=== PATIENT | female | born 1995 | race Caucasian/White ===

== ENCOUNTER 2021-09-13 15:24 | Outpatient (CLI) | payer BC, SELFPAY ==
[2021-09-13 16:34] LABS: Absolute Lymphocyte Count 3.05 X10^3/uL (0.83-4.51); Absolute Neutrophil Count 3.3 X10^3/uL (2.0-7.7); Basophil# 0.03 X10^3/uL; Basophil% 0.4 % (0-1); Eosinophil# 0.06 X10^3/uL; Eosinophils% 0.9 % (0-5); Hematocrit 38.8 % (37-47); Lymphocyte # 3.05 X10^3/ul (0.83-4.51); Lymphocyte % 44.1 % (19-41); Mean Corp Hgb Conc 33.5 g/dL (32-36); Mean Corpuscular Volume 89.4 fL (81-99); Mean Platelet Vol. 9.5 fl (6.2-12.0); Monocyte# 0.45 X10^3/uL; Monocyte% 6.5 % (0-10); NRBC Flagged by Analyzer 0.3 % (0-5); Neutrophil # 3.27 X10^3/uL (2.7-7.7); Neutrophil % 47.4 % (47-70); Platelet Count 320 K/mm3 (150-450); RBC Distribution Width CV 12.4 % (11.6-14.6); RBC Distribution Width SD 40.2 fl (35.1-43.9); Red Blood Count 4.34 M/mm3 (4.2-5.4); White Blood Count 6.9 K/mm3 (4.4-11.0)
[2021-09-13 16:58] LABS: AST(SGOT) 16 U/L (15-37); Alanine Aminotransfer ALT/SGPT 24 U/L (13-56); Alkaline Phosphatase 52 U/L (45-117); Anion Gap 5 (5-15); BUN 10 mg/dL (7-18); BUN/Creat Ratio 14.7 RATIO (10-20); Chloride 106 mmol/L (98-107); Creatinine, Serum 0.68 mg/dL (0.55-1.02); EST Glomerular Filtration Rate 111 mL/min (>60); Est Glom Filt Rate - Afr Amer 134 mL/min (>60); Globulin 3.9 g/dL (2.2-4.2); Glucose 78 mg/dL (74-106); Potassium 3.6 mmol/L (3.5-5.1); Protein, Total 7.9 g/dL (6.4-8.2); Sodium Level 139 mmol/L (136-145); Thyroid Stim Hormone (TSH) 1.28 uIU/mL (0.358-3.74)
[2021-09-15 20:04] LABS: ANTINUCLEAR ANTIBODIES DIRECT Negative (Negative)
== END 2021-09-13 23:59 | disposition home or self-care (01) ==
LOC: BIMLAB 15:25
PROVIDERS: PCP Internal Medicine; Referring Provider Internal Medicine; Visit Provider Internal Medicine
DX: R76.8 Other specified abnormal immunological findings in serum (principal); J45.909 Unspecified asthma, uncomplicated; Z13.29 Encounter for screening for other suspected endocrine disorder
CPT/HCPCS: 36415; 80053; 84439; 84443; 85025; 86038; 86225; 86235

== ENCOUNTER → 2021-09-27 | Outpatient (CLI) | payer BC, SELFPAY ==
--- NOTE | 2021-09-27 16:24 | ST.MBS ---
Modified Barium Swallow - Patient Information Study Date: 09/27/21 Study Time: 13:15 Direct Billable Minutes: 90 Total Minutes procedure & reportin Diagnosis: Dysphagia, unspecified (R13.10) Referring Physician: Santa Joya Reason for Referral: Objectively assess swallow function, risk for aspiration, and determine recommendations for least restrictive diet textures and compensatory strategies to improve safety of swallow. Medical History: The patient is a 26-year-old female with PMH including GERD, IBS, lupus, asthma, and dysphagia. SEE EMR for full PMH. She has been referred for MBS study by her PCP due to patient reports of increased difficulty swallowing for years. Per patient, her swallowing difficulty has been worse in the past 4-5 months. She denies hx of GERD. She reports she feels her swallow is slower, taking more effort, and requiring multiple swallows to clear. She has vomited 3X due to sensation that food was not clearing. Current Diet Ordered: Regular textures / Thin liquids Dentition: WNL Mental Status: WNL Respiratory Status: Oxygenating on Room Air - Penetration-Aspiration Scale Penetration-Aspiration Scale: OBJECTIVE ASSESSMENT OF SWALLOW FUNCTION (QUANTITATIVE ? PER TRIAL): PENETRATION / ASPIRATION SCALE (ENGLISH): 1 = does not enter airway 2 = enters airway/above vocal folds/ejected 3 = enters airway/above vocal folds/not ejected 4 = enters airway/contacts vocal folds/ejected 5 = enters airway/contacts vocal folds/not ejected 6 = enters airway/below vocal folds/ejected 7 = enters airway/below vocal folds/not ejected despite effort 8 = enters airway/below vocal folds/no effort VIDEOFLOROSCOPIC SCALE SCORE (ENGLISH): Grade I = aspiration of material that has penetrated into the laryngeal vestibule, intact cough reflex Grade II = aspiration < 10 % of the bolus, intact cough reflex Grade III = aspiration of < 10 % of the bolus, reduced cough reflex or aspiration of > 10 % of the bolus, intact cough reflex Grade IV = aspiration of > 10 % of the bolus, reduced cough reflex - Penetration-Aspiration Scale Score Thin Liquid via teaspoon Result: 1= does not enter airway Thin Liquid via teaspoon Trial 2 Result: 1= does not enter airway via large single sip from cup Result: 1= does not enter airway Thin Liquid via sequential sips from cup Result: 1= does not enter airway [place] Thick Liquid via small single sip from cup Result: 1= does not enter airway Honey Thick Liquid via small single sip from cup with esophageal screen Result: 1= does not enter airway Pudding via teaspoon with esophageal screen Result: 1= does not enter airway Cookie with esophageal screen Result: 1= does not enter airway Thin Liquid via single sip from straw Result: 1= does not enter airway Thin Liquid via sequential sips from straw Result: 1= does not enter airway - Oral Phase Labial Seal: No Labial Escape Tongue Control During Bolus Hold: Posterior escape of less than half of bolus Bolus Preparation/Mastication: Timely and efficient chewing and mashing Bolus Transport/Lingual Motion: Delayed initiation of tongue motion Oral Residue: Residue collection on oral structures - Piecemeal deglutition of large sips of thin liquid and cookie - Pharyngeal Phase Initiation of Pharyngeal Swallow: Bolus head in pyriforms Soft Palate Elevation: No bolus between soft palate and pharyngeal wall Laryngeal Elevation: Partial superior movement thyroid cart/partial apprx aryt-epig petiole Anterior Hyoid Excursion: Complete anterior movement Epiglottic Movement: Complete inversion Laryngeal Vestibule Closure at Height of Swallow: Complete; no air/contrast in laryngeal vestibule Pharyngeal Stripping Wave: Present - complete Pharyngoesophageal Segment Opening: Parital distension and partial duration; parital obstruction of flow Tongue Base Retraction: Trace column of contrast between tongue base & post. pharyngeal wall Pharyngeal Residue: Trace residue within or on pharyngeal structures - Esophageal Phase Esophageal Clearance: Esophageal retention w/ retrograde flow below pharyngoesophageal seg. - Diagnosis/Impression Diagnosis: Mild oropharyngeal phase dysphagia (R13.12) Impression: The oral phase is marked by piecemeal deglutition of cookie and large sips, as well as mild deficits in bolus control. The patient demonstrates posterior loss of large sip of thin liquids via cup to the pyriforms prior to swallow onset. The pharyngeal phase is marked by mild delay initiating the swallow. She demonstrated decreased laryngeal elevation; however, she presents with excellent airway closure during the swallow. No laryngeal penetration or aspiration observed during the study. The esophageal phase is marked by retention of pudding contrast in mid esophagus, as well as retention and retrograde flow of sequential sips of thin liquids just below the UES. GI consult recommended. The patient reports the need to cough to clear food/drink that will not clear at home. She also reports her swallow feels slower and more effortful. Will recommend OP speech therapy to provide review of the below recommendations and implement oropharyngeal strengthening exercise program. - Recommendations Diet: Regular Textures, Thin Liquids Compensatory Strategies: Small Bites, Small Sips, Slow Rate - Sips and bites one at a time, Sitting upright, Remain sitting upright for 30 minutes after PO intake Need for Skilled Speech Therapy Services: Yes Comment: Would recommend the patient for OP speech therapy to address mild oropharyngeal dysphagia. Will recommend 2-3 dysphagia treatment sessions for implementation of oropharyngeal exercises to promote improved laryngeal elevation and UES opening (Justine Funk). Would additionally provide the patient reflux education and review recommended compensatory strategies to decrease risk for aspiration and reflux. Education Completed: 1. Described result of evaluation., 2. Pt understands evaluation & agrees with goals and treatment plan. - Status Active ST Patient: Active - Contact Information [facility] Speech Therapy:: Lulu Gallo M.A. [facility] Speech-Language Pathologist [facility] [address] [place] [address] [email or web address] [phone] 09/27/21 16:42
== END | disposition home or self-care (01) ==
PROVIDERS: PCP Internal Medicine; Visit Provider Internal Medicine
DX: R13.10 Dysphagia, unspecified (principal)
CPT/HCPCS: 74230; 92611

== ENCOUNTER → 2021-11-03 | Outpatient (CLI) | payer BC, SELFPAY ==
[2021-11-03 16:31] LABS: Erythrocyte Sedimentation Rate 6 mm/hr (0-30)
[2021-11-03 16:55] LABS: CRP < 2.90 mg/L (0.0-3.0)
[2021-11-06 18:06] LABS: Endomysial Antibody IgA Negative (Negative)
[2021-11-07 16:23] LABS: Immunoglobulin A 95 mg/dL (87-352); t-Transglutaminase IgA <2 U/mL (0-3)
[2021-11-14 11:26] LABS: Anti-Centromere B Ab <0.2 AI (0.0-0.9); Anti-Chromatin <0.2 AI (0.0-0.9); Anti-Jo <0.2 AI (0.0-0.9); Anti-Scleroderma-70 AB <0.2 AI (0.0-0.9); Beef <0.10 kU/L (Class 0); Clam <0.10 kU/L (Class 0); Codfish <0.10 kU/L (Class 0); Corn <0.10 kU/L (Class 0); Egg, White <0.10 kU/L (Class 0); Egg, Whole <0.10 kU/L (Class 0); Milk (Cow) <0.10 kU/L (Class 0); Peanut <0.10 kU/L (Class 0); Pork <0.10 kU/L (Class 0); RNP Ab 0.2 AI (0.0-0.9); SCALLOP <0.10 kU/L (Class 0); SESAME SEED <0.10 kU/L (Class 0); SJOGREN'S Anti-SS-A test < 0.2 AI (0.0-0.9); SJOGREN'S Anti-SS-B test < 0.2 AI (0.0-0.9); Shrimp <0.10 kU/L (Class 0); Smith Ab <0.2 AI (0.0-0.9); Soybean <0.10 kU/L (Class 0); Walnut, (Food) <0.10 kU/L (Class 0); Wheat <0.10 kU/L (Class 0)
[2021-11-14 18:01] LABS: Anti-dsDNA Ab 1 IU/mL (0-9); Chocolate <0.10 kU/L (Class 0)
== END | disposition home or self-care (01) ==
LOC: LAB 15:19
PROVIDERS: PCP Internal Medicine; Visit Provider Nurse Practitioner Adult Health
DX: R11.0 Nausea (principal); R10.9 Unspecified abdominal pain; R13.10 Dysphagia, unspecified; K59.00 Constipation, unspecified
CPT/HCPCS: 36415; 82784; 83516; 85652; 86003; 86005; 86140; 86225; 86235; 86255

== ENCOUNTER 2022-02-14 13:11 | Day surgery (SDC) | payer BC, SELFPAY ==
[2022-02-14] MEDS: Lactated Ringers 1,000 ML 15 ML IV (13:30)
[2022-02-14 13:39] LABS: Internal QC Validated? YES +Cl - CLEAR BKGD; Pregnancy, Urine Negative Negative
--- NOTE | 2022-02-14 13:40 | PCM.HP.BLA ---
History and Physical Date of Admission: 02/14/22 CANDICE BALBUENA, is a 26 F who presents to the office today for multiple gastrointestinal concerns.? She has chronic nausea, belching, gas, abdominal pain, bloating, regurgitation, constipation. Belching after every bite or sip of food or fluid. Had it age 16, resolved spontaneously, back now. Lots of gas. 15 lb wt gain in the past year. Abd bloating. Severe epigastric pain causes vomiting, this is happened 3 times; it occurred twice with salsa, also happened after eating a baked potato. Feels like food is in a bubble, and the bubble comes up.? The pain made her drop to the floor. Occurs about once a week. Can also have LLQ pain, almost constant. Food sits in esophagus, comes back up. No esophageal spasms. Feels spasm in stomach sometimes. Chronic nausea always, normal for her. No heartburn, no burning feeling. Had constipation from miralax when she was younger.? Has omeprazole, takes it prn if she is going to eat greasy or fried food. Constipation??sometimes only one BM per week. High fiber diet. 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 Can alternate with diarrhea. Better with probiotic. And using a tea every other night. Eats 5 prunes daily. 2016 EGD and colonoscopy, found stomach ulcer, no longer has the symptoms she had then. Told twisted colon. That was in [place]. 2019 CT and MRI and US, lots of cysts, kidney, PCOS, and other organs 09/27/21 Modified barium swallow study: Mild oropharyngeal phase dysphagia. Recommended GI consult.? Recommended the patient for OP speech therapy to address mild oropharyngeal dysphagia. Positive SOFYA, possible lupus, arthritis vs fibromyalgia. Hasn't seen a Senior Bookkeeper here in [place]. Has asthma. Mostly uses albuterol inhaler if humid weather. No eczema. Some seasonal allergies. ROS Const Constitutional: Positive for fatigue, headache(s) and weight change ENT ENT: Positive for headache(s) and difficulty swallowing Gastro GI: Positive for abdominal pain, bloating, change in bowel habits, constipation, diarrhea, difficulty swallowing, excessive flatus, nausea/dyspepsia and vomiting; No belching, change in stool character, coffee ground emesis, cramping, heartburn, feeling full early, incontinent of stools, Vomiting blood/hematemesis, Blood in stool, loose stools, Black,tarry stools, pain with swallowing or other Musc Musculoskeletal: Positive for joint pain, joint swelling and muscle weakness Skin Skin: No yellowing of the eye or itchy eyes Neuro Neurology: Positive for headache(s) Psych Psychiatric: No anxiety and No depression Endo Endocrine: Positive for fatigue and weight change Aller/Imm Allergy/Immunologic: No itchy eyes Bautista/Lymp Hematologic/Lymphatic: No easy bleeding or easy bruising Exam Const General: cooperative, comfortable, well developed and well groomed Nutritional Appearance: overweight Other: She went to Eyes General: appearance normal, both eyes and all related structures Resp Effort & Inspection: normal respiratory effort GI Auscultation: normal bowel sounds Palpation: soft, no hepatosplenomegaly, no masses and tender in the epigastrum, in the LLQ and in the LUQ Skin General: no rashes or lesions noted Neuro Speech: speech normal Gait: normal gait Extrem General: no pedal edema Psych Mood: euthymic mood Affect: normal affect Quality Reporting Tobacco Screening ([facility] 138) Smoking Status: Never smoker Assessment and Plan Assessment and Plan (1) Constipation: ?Status:?Acute (2) Dysphagia: ?Status:?Acute (3) Abdominal pain: ?Status:?Acute (4) Nausea: ?Status:?Acute ? ? ? Orders:?Orders: ? CRP 11/03/21 K59.00, R13.10, R10.9, R11.0 ? ? Erythrocyte Sed Rate 11/03/21 K59.00, R13.10, R10.9, R11.0 ? ? SOFYA Comprehensive Panel 11/03/21 K59.00, R13.10, R10.9, R11.0 ? ? Celiac Disease Profile 11/03/21 K59.00, R13.10, R10.9, R11.0 ? ? Allergen, Rast Food Profile 11/03/21 K59.00, R13.10, R10.9, R11.0 ? ? Allergen, Food Profile 11/03/21 K59.00, R13.10, R10.9, R11.0 ? ? Abdomen/Pelvis WITH Contrast 11/03/21 K59.00, R10.9 ?Plan - Nessa Padgett [employer], [employer]-C: 26-year-old female with nausea, dysphagia, several episodes of vomiting, abdominal pain, constipation We will do a biochemical w/u will evaluate inflammatory markers, food allergies, celiac disease, autoimmune disorders CT abdomen and pelvis with oral and IV contrast considering chronic upper and lower abdominal pain, constipation, nausea and vomiting pain EGD with possible manometry, colonoscopy f/u 6 wks hold off on rx eg linzess, try aloe vera or kiwi supplement or mineral oil I have re-examined the patient. There are no clinical changes since date of exam.
[2022-02-14 13:45] VITALS: BP 109/75; PULSE 100; RESP 16; TEMP 36.8; O2SAT 100; BMI 27.0
--- NOTE | 2022-02-14 14:15 | COLBX_PTH ---
PATIENT: CANDICE HACKETT LOC: EN U#:[id number] AGE/SX: 26/F ROOM: RE02/14/[address]: Dr. Brian Wright DO : 1995 BED: DIS: 02/14/2022 SPEC #: [id number] RECD: 02/14/22 15:24 STATUS: SOHA BOGDAN #: [id number] BHUMI: 02/14/22 14:[address]: Brian Wright DEPT: SURGICAL PATHOLOGY RECD BY: Santo Sesay ENTERED: 02/15/22 08:18 SP TYPE: COLON BX OTHR DR: Dr. Santa Joya MD Tissues: A - Duodenum, NOS B - Gastric mucous membrane C - Esophagus, NOS D - Esophagus, NOS E - Ileum, NOS F - Sigmoid colon biopsy Procedures: Special Stain Group II Surgery Specimen Level IV Alcian Blue/PAS (control) HEADER OPERATION: Colonoscopy, [place] [place] PRE-OP DIAGNOSIS: Constipation, dysphagia, abdominal pain, nausea TISSUE SUBMITTED: A ? Duodenum biopsy, B ? Gastric ulcer biopsy, C ? Distal esophagus biopsy, D ? Random esophagus biopsy, E ? Terminal ileum biopsy, F ? Sigmoid biopsy MICROSCOPIC DIAGNOSIS A. Duodenum, biopsy: Fragments of duodenal mucosa, no pathologic diagnosis. B. Gastric ulcer, biopsy: Fragments of gastric mucosa with extensive ulceration and acute and chronic inflammation. See comment. C. Distal esophagus, biopsy: Fragments of gastroesophageal mucosa with chronic inflammation. Intestinal metaplasia (goblet cell metaplasia) not identified. See comment. D. Esophagus, random biopsy: Fragments of benign squamous epithelium. E. Terminal ileum, biopsy: Fragments of small intestinal mucosa, no pathologic diagnosis. F. Sigmoid colon, biopsy: Fragments of colonic mucosa, no pathologic diagnosis. SJ:johanna 02/16/2022 COMMENT B. The results of immunohistochemistry for Helicobacter pylori will be reported separately ([id number]). C. Alcian blue/PAS stain with matched control is used in the evaluation of the specimen. MICROSCOPIC DESCRIPTION Slides are reviewed. GROSS DESCRIPTION A - Received in fixative is one container labeled with the patient's name and designated duodenum biopsy. The specimen consists of multiple irregular fragments of light shirley soft tissue that in aggregate measure 1.5 x 0.5 x 0.1 cm. The specimen is totally submitted in one cassette. B - Received in fixative is one container labeled with the patient's name and designated gastric ulcer biopsy. The specimen consists of multiple irregular fragments of light shirley soft tissue that in aggregate measure 1 x 0.3 x 0.1 cm. The specimen is totally submitted in one cassette. C - Received in fixative is one container labeled with the patient's name and designated distal esophagus biopsy. The specimen consists of one irregular fragment of light shirley soft tissue that measures 0.5 x 0.2 x 0.1 cm. The specimen is totally submitted in one cassette. D - Received in fixative is one container labeled with the patient's name and designated random esophagus biopsy. The specimen consists of multiple irregular fragments of light shirley soft tissue that in aggregate measure 1 x 0.3 x 0.1 cm. The specimen is totally submitted in one cassette. E - Received in fixative is one container labeled with the patient's name and designated terminal ileum biopsy. The specimen consists of multiple irregular fragments of light shirley soft tissue that in aggregate measure 0.8 x 0.3 x 0.1 cm. The specimen is totally submitted in one cassette. F - Received in fixative is one container labeled with the patient's name and designated sigmoid biopsy. The specimen consists of multiple irregular fragments of light shirley soft tissue that in aggregate measure 1.5 x 0.4 x 0.1 cm. The specimen is totally submitted in one cassette. / SJ:rg 02/15/2022 TC:2 CPT: 00153 x6, [id number]
--- NOTE | 2022-02-14 14:15 | IMM_PTH ---
PATIENT: CANDICE HACKETT LOC: JESSA U#:[id number] AGE/SX: 26/F ROOM: RE02/14/[address]: Dr. Brian Wright DO : 1995 BED: DIS: 02/14/2022 SPEC #: [id number] RECD: 02/15/22 09:35 STATUS: SOHA REDemetrice #: [id number] BHUMI: 02/14/22 14:[address]: Brian Wright DEPT: IMMUNOHISTOCHEMISTRY RECD BY: Yelena Salvador ENTERED: 02/15/22 09:35 SP TYPE: IMMUNO OTHR DR: Dr. Santa Joya MD Tissues: B - Stomach, NOS Procedures: H Pylori (initial) PHYSICIAN & INSTITUTION [place] [id number] SPECIMEN INFORMATION: Tissue Source: B ? Gastric ulcer Clinical Info: Constipation, dysphagia, abdominal pain Specimen Number: [id number] CPT code: 75662 METHODOLOGY: Deparaffinized sections of prefer/formalin-fixed tissue or PAP/DQ stained slides are incubated with monoclonal/polyclonal antibodies/oligonucleotide probes. Localization is made via biotin free immunoperoxidase method. Appropriate controls are performed and reacted as expected. Results on target cell population are indicated in the following table: RESULTS: ANTIBODY / CLONE RESULT Block B H Pylori (polyclonal) negative These tests were developed and their performance characteristics determined by [facility]. They may not have been cleared or approved by the U.S. Food and Drug Administration. The FDA has determined that such clearance or approval is not necessary. The above immunohistochemical/dualISH markers are ordered and reviewed by the Pathologist. INTERPRETATION: B. Gastric ulcer, biopsy: Negative for Helicobacter pylori organisms. ANANDA:johanna 02/16/2022
[2022-02-14 15:10] VITALS: BP 100/55; BP 109/75; PULSE 90; RESP 18; TEMP 37; O2SAT 98
--- NOTE | 2022-02-14 15:12 | OP.EGD_ITS ---
Patient Name: Deider De La Cruz Procedure Date: 02/14/2022 2:22 PM Date of : 1995 Age: 26 Procedure: Upper GI endoscopy Indications: Epigastric abdominal pain Providers: Brian Wright DO Medicines: Monitored Anesthesia Care Patient Profile: This is a 26 year old female. Refer to note in patient chart for documentation of history and physical. Patient has symptoms of chronic epigastric abdominal pain and chronic nausea. Complications: No immediate complications. Procedure: Pre-Anesthesia Assessment: - Prior to the procedure, a History and Physical was performed, and patient medications and allergies were reviewed. The risks and benefits of the procedure and the sedation options and risks were discussed with the patient. All questions were answered and informed consent was obtained. Patient identification and proposed procedure were verified by the physician in the pre-procedure area. Mental Status Examination: alert and oriented. Airway Examination: normal oropharyngeal airway and neck mobility. Respiratory Examination: clear to auscultation. CV Examination: normal. Prophylactic Antibiotics: The patient does not require prophylactic antibiotics. Prior Anticoagulants: The patient has taken no previous anticoagulant or antiplatelet agents. ASA Grade Assessment: II - A patient with mild systemic disease. After reviewing the risks and benefits, the patient was deemed in satisfactory condition to undergo the procedure. The anesthesia plan was to use monitored anesthesia care (MAC). Immediately prior to administration of medications, the patient was re-assessed for adequacy to receive sedatives. The heart rate, respiratory rate, oxygen saturations, blood pressure, adequacy of pulmonary ventilation, and response to care were monitored throughout the procedure. The physical status of the patient was re-assessed after the procedure. After obtaining informed consent, the endoscope was passed under direct vision. Throughout the procedure, the patient's blood pressure, pulse, and oxygen saturations were monitored continuously. The was introduced through the mouth, and advanced to the second part of duodenum. The upper GI endoscopy was accomplished without difficulty. The patient tolerated the procedure well. Scope In: 2:39:50 PM Scope Out: 2:49:07 PM Total Procedure Duration Time 0 hours 9 minutes 17 seconds Findings: The Z-line was irregular and was found 38 cm from the incisors. Biopsies were taken with a cold forceps for histology. Verification of patient identification for the specimen was done. A small hiatal hernia was present. One oozing cratered gastric ulcer with a visible vessel was found in the gastric antrum. The lesion was 6 mm in largest dimension. Biopsies were taken with a cold forceps for histology. Verification of patient identification for the specimen was done. Estimated blood loss was minimal. No gross lesions were noted in the second portion of the duodenum. Biopsies were taken with a cold forceps for histology. Verification of patient identification for the specimen was done. Estimated blood loss was minimal. Impression: - Z-line irregular, 38 cm from the incisors. Biopsied. - Small hiatal hernia. - Oozing gastric ulcer with a visible vessel. Biopsied. - No gross lesions in the second portion of the duodenum. Biopsied. Recommendation: - Discharge patient to home. - Resume previous diet. - Use Protonix (pantoprazole) 40 mg PO BID for 8 weeks. - Use sucralfate tablets 1 gram PO QID for 4 weeks. - No nonsteroidals for 3 months -Check a gastrin level and a CEA level -Consider endoscopic ultrasound for nonhealing ulcer pending biopsies and biochemical work-up - Continue present medications. - No aspirin, ibuprofen, naproxen, or other non-steroidal anti-inflammatory drugs for 12 weeks. Procedure Code(s): --- Professional --- 48672, Esophagogastroduodenoscopy, flexible, transoral; with biopsy, single or multiple CPT copyright 2017 [employer]. All rights reserved. The codes documented in this report are preliminary and upon meat cutter review may be revised to meet current compliance requirements. Brian Wright DO 02/14/2022 3:12:28 PM This report has been signed electronically. Number of Addenda: 0 Note Initiated On: 02/14/2022 2:22 PM
--- NOTE | 2022-02-14 15:14 | OP.CCLET_ITS ---
02/14/2022 Santa Joya MD [address] [place] [address] [place] [address] Re : Upper GI endoscopy procedure for Deidre De La Cruz Dear Dr. Joya This procedure was performed on Monday, February 14, 2022. My impressions and recommendations are as follows: Impressions : - Z-line irregular, 38 cm from the incisors. Biopsied. - Small hiatal hernia. - Oozing gastric ulcer with a visible vessel. Biopsied. - No gross lesions in the second portion of the duodenum. Biopsied. Recommendations : - Discharge patient to home. - Resume previous diet. - Use Protonix (pantoprazole) 40 mg PO BID for 8 weeks. - Use sucralfate tablets 1 gram PO QID for 4 weeks. - No nonsteroidals for 3 months -Check a gastrin level and a CEA level -Consider endoscopic ultrasound for nonhealing ulcer pending biopsies and biochemical work-up - Continue present medications. - No aspirin, ibuprofen, naproxen, or other non-steroidal anti-inflammatory drugs for 12 weeks. My findings are described in the full procedure note, which is enclosed. If I can be of further assistance, please feel free to contact me at . Sincerely, Brian Wright, 02/14/2022 3:12:28 PM This report has been signed electronically.
[2022-02-14 15:15] VITALS: BP 109/75; BP 99/63; PULSE 89; RESP 16; O2SAT 98
--- NOTE | 2022-02-14 15:17 | OP.COLON_ITS ---
Patient Name: Deidre De La Cruz Procedure Date: 02/14/2022 2:49 PM Date of : 1995 Age: 26 Procedure: Colonoscopy Indications: This is the patient's first colonoscopy Providers: Brian Wright DO Medicines: Monitored Anesthesia Care Patient Profile: This is a 26 year old female. Refer to note in patient chart for documentation of history and physical. Patient has symptoms of chronic epigastric abdominal pain and chronic nausea. Last Colonoscopy: date unknown. Complications: No immediate complications. Procedure: Pre-Anesthesia Assessment: - Prior to the procedure, a History and Physical was performed, and patient medications and allergies were reviewed. The risks and benefits of the procedure and the sedation options and risks were discussed with the patient. All questions were answered and informed consent was obtained. Patient identification and proposed procedure were verified by the physician in the pre-procedure area. Mental Status Examination: alert and oriented. Airway Examination: normal oropharyngeal airway and neck mobility. Respiratory Examination: clear to auscultation. CV Examination: normal. Prophylactic Antibiotics: The patient does not require prophylactic antibiotics. Prior Anticoagulants: The patient has taken no previous anticoagulant or antiplatelet agents. ASA Grade Assessment: II - A patient with mild systemic disease. After reviewing the risks and benefits, the patient was deemed in satisfactory condition to undergo the procedure. The anesthesia plan was to use monitored anesthesia care (MAC). Immediately prior to administration of medications, the patient was re-assessed for adequacy to receive sedatives. The heart rate, respiratory rate, oxygen saturations, blood pressure, adequacy of pulmonary ventilation, and response to care were monitored throughout the procedure. The physical status of the patient was re-assessed after the procedure. After I obtained informed consent, the scope was passed under direct vision. Throughout the procedure, the patient's blood pressure, pulse, and oxygen saturations were monitored continuously. The Colonoscope was introduced through the anus and advanced to the terminal ileum. The colonoscopy was performed without difficulty. The patient tolerated the procedure well. The quality of the bowel preparation was good. Scope In: 2:52:01 PM Scope Withdrawal Time 0 hours 7 minutes 47 seconds Scope Out: 3:05:22 PM Total Procedure Duration Time 0 hours 13 minutes 21 seconds Findings: The perianal and digital rectal examinations were normal. An area of mildly congested mucosa was found in the recto-sigmoid colon and in the sigmoid colon. Biopsies were taken with a cold forceps for histology. Verification of patient identification for the specimen was done. Estimated blood loss was minimal. The terminal ileum appeared normal. Biopsies were taken with a cold forceps for histology. Verification of patient identification for the specimen was done. Estimated blood loss was minimal. Impression: - Congested mucosa in the recto-sigmoid colon and in the sigmoid colon. Biopsied. - The examined portion of the ileum was normal. Biopsied. Recommendation: - Discharge patient to home. - Resume previous diet. - Continue present medications. - Await pathology results. - Repeat colonoscopy is recommended for surveillance. The colonoscopy date will be determined after pathology results from today's exam become available for review. Procedure Code(s): --- Professional --- 75292, Colonoscopy, flexible; with biopsy, single or multiple CPT copyright 2017 [employer]. All rights reserved. The codes documented in this report are preliminary and upon plastic injection mold maker review may be revised to meet current compliance requirements. Brian Wright DO 02/14/2022 3:17:11 PM This report has been signed electronically. Number of Addenda: 0 Note Initiated On: 02/14/2022 2:49 PM
--- NOTE | 2022-02-14 15:18 | OP.CCLET_ITS ---
02/14/2022 Santa Joya MD [address] [place] [address] [place] [address] Re : Colonoscopy procedure for Deidre Singh Dear Dr. Joya This procedure was performed on Monday, February 14, 2022. My impressions and recommendations are as follows: Impressions : - Congested mucosa in the recto-sigmoid colon and in the sigmoid colon. Biopsied. - The examined portion of the ileum was normal. Biopsied. Recommendations : - Discharge patient to home. - Resume previous diet. - Continue present medications. - Await pathology results. - Repeat colonoscopy is recommended for surveillance. The colonoscopy date will be determined after pathology results from today's exam become available for review. My findings are described in the full procedure note, which is enclosed. If I can be of further assistance, please feel free to contact me at . Sincerely, Brian Wright, 02/14/2022 3:17:11 PM This report has been signed electronically.
[2022-02-14 15:20] VITALS: BP 109/75; BP 94/73; PULSE 82; RESP 16; O2SAT 100
[2022-02-14 15:25] VITALS: BP 109/75; BP 95/70; PULSE 85; RESP 16; TEMP 35.9; O2SAT 100
[2022-02-14 15:44] VITALS: BP 109/75
== END 2022-02-14 16:02 | disposition home or self-care (01) ==
LOC: EN 13:14 → AC 13:15
PROVIDERS: Anesthesiology; PCP Internal Medicine; Referring Provider Internal Medicine; Visit Provider Internal Medicine Gastroenterology
PROC: 0DJD8ZZ Inspection of Lower Intestinal Tract, Via Natural or Artificial Opening Endoscopic (ICD-10-PCS; CPT 45378; principal; 2022-02-14 14:10)
DX: K25.3 Acute gastric ulcer without hemorrhage or perforation (principal); K44.9 Diaphragmatic hernia without obstruction or gangrene; K20.90 Esophagitis, unspecified without bleeding; K63.89 Other specified diseases of intestine; J45.909 Unspecified asthma, uncomplicated; Z79.899 Other long term (current) drug therapy
CPT/HCPCS: 43239; 45380; 81025; 88305; 88313; 88342; J7120; J2405

== ENCOUNTER → 2022-03-11 | Outpatient (CLI) | payer BC, SELFPAY ==
[2022-03-16 17:09] LABS: Carcinoembryonic Antigen 0.4 ng/mL (0.0-4.7); Gastrin, Serum 42 pg/mL (0-115)
== END | disposition home or self-care (01) ==
LOC: LAB 09:01
PROVIDERS: PCP Internal Medicine; Referring Provider Nurse Practitioner Adult Health; Visit Provider Nurse Practitioner Adult Health
DX: K25.9 Gastric ulcer, unspecified as acute or chronic, without hemorrhage or perforation (principal)
CPT/HCPCS: 36415; 82378; 82941

== ENCOUNTER → 2022-04-06 | Outpatient (CLI) | payer BC, SELFPAY ==
[2022-04-06 11:21] LABS: Progesterone Level 5.67 ng/mL (See Comment)
[2022-04-06 11:22] LABS: Estradiol 91.6 pg/mL
== END | disposition home or self-care (01) ==
LOC: LAB 09:58
PROVIDERS: PCP Internal Medicine; Referring Provider Obstetrics & Gynecology; Visit Provider Obstetrics & Gynecology
DX: N80.03 Adenomyosis of the uterus (principal); N94.6 Dysmenorrhea, unspecified
CPT/HCPCS: 36415; 82670; 84144

== ENCOUNTER → 2022-04-12 | Outpatient (CLI) | payer BC, SELFPAY ==
[2022-04-12 08:11] LABS: Vitamin B12 498 pg/mL (211-911); Vitamin D,25 Hydroxy 23.4 ng/mL
[2022-04-12 11:20] LABS: Estradiol 27.9 pg/mL; Follicle Stimulating Hormone 7.7 mIU/mL; Free T3 2.5 pg/mL (2.18-3.98); Luteinizing Hormone 7.8 mIU/mL; Prolactin 22.5 ng/mL; T4 Free Direct 0.94 ng/dL (0.76-1.46); T4 Total, Thyroxin 9.5 ug/dL (4.8-13.9); Thyroid Stim Hormone (TSH) 1.69 uIU/mL (0.358-3.74)
[2022-04-16 10:29] LABS: Anti-Mullerian Hormone,Serum 2.61 ng/mL (.); Thyroglobulin Antibody < 1.0 IU/mL (0.0-0.9); Thyroid Peroxidase AB < 8 IU/mL (0-34)
[2022-04-19 16:11] LABS: 17-Hydroxyprogesterone 35 ng/dL (.)
== END | disposition home or self-care (01) ==
LOC: LAB 06:54
PROVIDERS: PCP Internal Medicine; Referring Provider Obstetrics & Gynecology; Visit Provider Obstetrics & Gynecology
DX: E22.1 Hyperprolactinemia (principal); Z13.228 Encounter for screening for other metabolic disorders; E53.9 Vitamin B deficiency, unspecified; E55.9 Vitamin D deficiency, unspecified; E03.9 Hypothyroidism, unspecified; N80.03 Adenomyosis of the uterus; E28.0 Estrogen excess; E28.1 Androgen excess
CPT/HCPCS: 36415; 82306; 82607; 82627; 82670; 82746; 83001; 83002; 83498; 83516; 84146; 84403; 84436; 84439; 84443; 84480; 84481; 86376; 86800; 82626

== ENCOUNTER → 2022-05-08 | Outpatient (CLI) | payer BC, SELFPAY ==
[2022-05-08 07:44] LABS: Glucose 75GTT - Fasting 107 mg/dL (70-99)
[2022-05-08 08:22] LABS: Insulin 75GTT - Fasting 7.1 mU/L (2.6-37.6)
[2022-05-08 08:47] LABS: Glucose 75GTT - 60 minutes 196 mg/dL (100-160)
[2022-05-08 08:47] LABS: Glucose 75GTT - 30 minutes 181 mg/dL (100-160)
[2022-05-08 08:58] LABS: Insulin 75GTT - 30 MIN 28.9 mU/L (Not Estab.)
[2022-05-08 09:00] LABS: Insulin 75GTT - 60 min 60.1 mU/L (Not Estab)
[2022-05-08 10:02] LABS: Glucose 75GTT - 120 minutes 105 mg/dL (70-140)
== END | disposition home or self-care (01) ==
LOC: LAB 07:00
PROVIDERS: PCP Internal Medicine; Referring Provider Obstetrics & Gynecology; Visit Provider Obstetrics & Gynecology
DX: R73.09 Other abnormal glucose (principal)
CPT/HCPCS: 36415; 82951; 82952; 83525

== ENCOUNTER → 2022-08-30 | Outpatient (CLI) | payer BC, SELFPAY ==
[2022-08-30 13:14] LABS: Progesterone Level 12.44 ng/mL (See Comment); T3 Total - Triiodothyronine 1.09 ng/mL (0.6-1.81); Vitamin D,25 Hydroxy 35.2 ng/mL
[2022-08-30 14:33] LABS: Free T3 2.4 pg/mL (2.18-3.98); Prolactin 19.6 ng/mL; T4 Free Direct 0.86 ng/dL (0.76-1.46); Thyroid Stim Hormone (TSH) 1.56 uIU/mL (0.358-3.74)
== END | disposition home or self-care (01) ==
LOC: LAB 09:32
PROVIDERS: PCP Internal Medicine; Referring Provider Obstetrics & Gynecology; Visit Provider Obstetrics & Gynecology
DX: E55.9 Vitamin D deficiency, unspecified (principal); E22.1 Hyperprolactinemia; E03.9 Hypothyroidism, unspecified; E28.9 Ovarian dysfunction, unspecified
CPT/HCPCS: 36415; 82306; 84144; 84146; 84439; 84443; 84480; 84481

== ENCOUNTER → 2024-01-04 | Outpatient (CLI) | payer BC, SELFPAY ==
[2024-01-04 16:16] LABS: Absolute Neutrophil Count 7.5 X10^3/uL (2.0-7.7); Basophil# 0.02 X10^3/uL; Basophil% 0.1 % (0-1); Eosinophil# 0.03 X10^3/uL; Eosinophils% 0.2 % (0-5); Hematocrit 39.2 % (37-47); Lymphocyte % 40.6 % (19-41); Mean Corp Hgb Conc 33.2 g/dL (32-36); Mean Corpuscular Hgb 28.8 pg (27.0-32.0); Mean Corpuscular Volume 86.9 fL (81-99); Mean Platelet Vol. 9.6 fl (6.2-12.0); Monocyte# 0.61 X10^3/uL; Monocyte% 4.4 % (0-10); NRBC Flagged by Analyzer 0 % (0-5); Neutrophil # 7.46 X10^3/uL (2.7-7.7); Neutrophil % 54.1 % (47-70); POSITIVE DIFFERENTIAL YES; POSITIVE MORPHOLOGY YES; Platelet Count 332 K/mm3 (150-450); RBC Distribution Width CV 12.3 % (11.6-14.6); RBC Distribution Width SD 39.2 fl (35.1-43.9); Red Blood Count 4.51 M/mm3 (4.2-5.4); White Blood Count 13.8 K/mm3 (4.4-11.0)
[2024-01-04 16:21] LABS: Differential Indicated SCAN CRITERIA MET
[2024-01-04 16:45] LABS: ALB/GLOB Ratio 1.1 RATIO (0.9-2.4); AST(SGOT) 11 U/L (15-37); Alanine Aminotransfer ALT/SGPT 20 U/L (13-56); Alkaline Phosphatase 53 U/L (45-117); Anion Gap 5 (5-15); BUN 12 mg/dL (7-18); CRP 5.47 mg/L (0.0-3.0); Calcium,Total 9.5 mg/dL (8.5-10.1); Chloride 103 mmol/L (98-107); Creatinine, Serum 0.71 mg/dL (0.55-1.02); EST Glomerular Filtration Rate 104 mL/min (>60); Est Glom Filt Rate - Afr Amer 125 mL/min (>60); Globulin 3.7 g/dL (2.2-4.2); Glucose 86 mg/dL (74-106); Potassium 3.4 mmol/L (3.5-5.1); Protein, Total 7.7 g/dL (6.4-8.2); Sodium Level 136 mmol/L (136-145); Thyroid Stim Hormone (TSH) 1.79 uIU/mL (0.358-3.74)
[2024-01-04 17:10] LABS: Differential Comment SCANNED; Erythrocyte Sedimentation Rate 11 mm/hr (0-30)
[2024-01-07 14:09] LABS: Anti-Centromere B Ab <0.2 AI (0.0-0.9); Anti-Chromatin <0.2 AI (0.0-0.9); Anti-Jo <0.2 AI (0.0-0.9); Anti-Scleroderma-70 AB <0.2 AI (0.0-0.9); Anti-dsDNA Ab 1 IU/mL (0-9); RNP Ab 0.2 AI (0.0-0.9); SJOGREN'S Anti-SS-A test < 0.2 AI (0.0-0.9); SJOGREN'S Anti-SS-B test < 0.2 AI (0.0-0.9); Smith Ab <0.2 AI (0.0-0.9)
== END | disposition home or self-care (01) ==
LOC: BIMLAB 15:08
PROVIDERS: PCP Internal Medicine; Referring Provider Nurse Practitioner; Visit Provider Nurse Practitioner
DX: L50.8 Other urticaria (principal)
CPT/HCPCS: 36415; 80053; 84443; 85025; 85652; 86140; 86225; 86235; 86664

== ENCOUNTER → 2024-01-18 | Outpatient (CLI) | payer BC, SELFPAY | END | disposition home or self-care (01) | LOC: LABSPEC 08:21 | PROVIDERS: PCP Internal Medicine; Referring Provider Physician Assistant; Visit Provider Physician Assistant | DX: K58.9 Irritable bowel syndrome, unspecified (principal) | CPT/HCPCS: 87177; 87209 ==